=== PATIENT | female | born 1990 | race Hispanic/Latino ===

== ENCOUNTER 2024-11-05 13:59 | Emergency (ER) | payer SELFPAY ==
[~2024-11-05] VITALS: Ht 167.6 cm; Wt 131.5 kg
[2024-11-05] MEDS ORDERED: TOBR5DRO46 OD (15:10)
--- NOTE | 2024-11-05 15:11 | ERN ---
General Chief Complaint: Eye Problems Stated Complaint: PINK EYE Time Seen by MD: 14:06 Time Seen by Midlevel: 14:06 Source: patient History of Present Illness Initial Comments Patient is a 34-year-old female presenting to the emergency department for evaluation of right eye pain and redness. Patient states her boyfriend was diagnosed with conjunctivitis. Shortly after her symptoms started. She does report waking up with right eye boogers. Denies any other symptoms. Allergies: Coded Allergies: No Known Drug Allergies (Unverified Allergy, Unknown, 11/05/24) Home Meds Active Scripts Tobramycin/Dexamethasone (Tobradex St Eye Drops) 0.3 %-0.05 % Drops.susp, 1 DROP OD QID, #5 ML 0 Refills Prov:ROMULO COHEN 11/05/24 Past Medical History Past Medical History: No Pertinent History Past Surgical History: None ROS Dictation CONSTITUTIONAL: Negative except for HPI HEAD/FACE: Negative except for HPI EENT: Negative except for HPI RESPIRATORY: Negative except for HPI GASTROINTESTINAL/ABDOMINAL: Negative except for HPI GENITOURINARY: Negative except for HPI MUSCULOSKELETAL: Negative except for HPI INTEGUMENTARY: Negative except for HPI NEUROLOGICAL/PSYCH: Negative except for HPI HEMATOLOGIC/LYMPHATIC: Negative except for HPI All Systems Negative, Except as noted above. 13 point review of systems assessed and all negative except for above. Physical Exam Physical Exam Dictation PHYSICAL EXAM: GENERAL: alert,, awake oriented x 3 HEENT: EOMI, Sclera non icteric, moist mucosa, erythema to the right conjunctival consistent with conjunctivitis NECK: Supple, no JVD, trachea midline LUNGS: Clear breath sounds bilaterally. No wheezes HEART: Regular rate and rhythm. Normal S1 and S2, without murmurs ABD: Abdomen soft, nontender. Bowel sounds present EXT: No clubbing or cyanosis, NEURO: Alert and oriented to person, follows commands MDM MDM: Differential diagnosis: Conjunctivitis, blepharitis, allergies There are no social concerns with this patient. Prescription drug management Prescriptions will include: TobraDex Medical management and examination interpretation discussions were had by me with other qualified healthcare professionals as indicated for the patient's care. ED Course Vital Signs Date Time Temp Pulse Resp B/P (MAP) Pulse Ox O2 Delivery O2 Flow Rate FiO2 11/05/24 15:53 97.5 74 16 128/68 98 Room Air* 0 21 11/05/24 15:03 97.5 72 16 133/73 98 Room Air* 0 21 11/05/24 14:02 97.5 72 16 133/73 98 Room Air 0 DX & DISP Disposition: Discharge Departure Impression: Primary Impression: Conjunctivitis, right eye Condition: Stable Scripts Tobramycin/Dexamethasone (Tobradex St Eye Drops) 0.3 %-0.05 % Drops.susp 1 DROP OD QID, #5 ML 0 Refills Prov: ROMULO COHEN 11/05/24 Referrals: SELF,REFERRAL (PCP) Time of Disposition: 15:10 I have reviewed the case, and I agree with, Diagnosis and Plan I performed the substantive portion of the visit. I have reviewed and personally made and approve the management plan that is documented in the note by myself or the CATHERINE. I acknowledge for responsibility for the patient's management plan. ROMULO COHEN November 05, 2024 15:11 CAMPBELL GIPSON DO November 07, 2024 04:15
[2024-11-05 15:53] VITALS: BP 128/68; PULSE 74; RESP 16; TEMP 97.5; O2SAT 98
== END 2024-11-05 16:03 | disposition home or self-care (01) ==
LOC: EDH 13:59
DX: H10.9 Unspecified conjunctivitis (principal)
CPT/HCPCS: 99283